=== PATIENT | male | born 1940 | race Caucasian/White ===

== ENCOUNTER 2017-04-25 09:57 | Inpatient (IN) | payer OTHER ==
[2017-04-24 11:35] LABS: BASOPHILS # (AUTO) 0.1 (0.0-0.1); BASOPHILS % 0.7 % (0.0-1.0); EOSINOPHILS # (AUTO) 0.1 (0.0-0.4); HEMATOCRIT 41.3 % (38.2-49.6); HEMOGLOBIN 14.4 g/dL (14.0-18.0); LYMPHOCYTES # (AUTO) 1.8 (1.0-3.2); LYMPHOCYTES % 21.6 % (18.0-39.1); MEAN CORPUSCULAR HEMOGLOBIN 31.2 pg (28-32); MEAN CORPUSCULAR HGB CONC 34.9 g/dL (31-35); MEAN CORPUSCULAR VOLUME 89.6 fL (81-99); MONOCYTES # (AUTO) 0.7 (0.2-0.8); MONOCYTES % 8.2 % (4.4-11.3); NEUTROPHILS # (AUTO) 5.5 (2.1-6.9); NEUTROPHILS % 68.3 % (38.7-80.0); PLATELET COUNT 331 x10e3/uL (140-360); RED BLOOD COUNT 4.61 x10e6/uL (4.3-5.7); RED CELL DISTRIBUTION WIDTH 13.1 % (11.7-14.4)
[2017-04-24 12:04] LABS: BLOOD UREA NITROGEN 21 mg/dL (7-26); BUN/CREATININE RATIO 20 (6-25); CARBON DIOXIDE 28 mmol/L (22-29); CHLORIDE 106 mmol/L (98-107); CREATININE, SERUM 1.07 mg/dL (0.72-1.25); EST GLOMERULAR FILTRATION RATE > 60 ML/MIN (60-); GLUCOSE 105 mg/dL (74-118); SODIUM 143 mmol/L (136-145)
--- NOTE | 2017-04-24 12:09 | Diagnostic Imaging Report ---
PROCEDURE:CHEST 2 VIEWS TECHNIQUE:PA and lateral chest INDICATION:Preop evaluation COMPARISON:None. FINDINGS: Lungs are clear and symmetrically inflated. No pleural effusions. Normal heart heart size and mediastinal contour. 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 Intact skeleton. CONCLUSION: No acute abnormality. Dictated by: Tommy Small M.D. on 04/24/2017 at 12:18 Electronically approved by: Tommy Small M.D. on 04/24/2017 at 12:18
[~2017-04-25] VITALS: Ht 167.6 cm; Wt 84.8 kg
[~2017-04-25 09:57] MED LIST: ALLOPURINOL300 MG PO; AVODART0.5 MG PO; DOXAZOSIN MESYLA4 MG PO; HYDROCHLOROTHIA25 MG PO; PENICILLIN V P500 MG PO; SIMVASTATIN20 MG PO
[2017-04-25] MEDS ORDERED: CEFOXITIN 1GM/ DEXTROSE 50ML 100 ML IV ONE (10:21)
[2017-04-25] MEDS ORDERED: BUPIVACAINE HCL 0.5% INJ 30 ML VIAL INJ ONE (13:24)
[2017-04-25] MEDS ORDERED: ONDANSETRON HCL INJ 2 MG/ML VIAL ONE ×2 (14:23→15:33)
[2017-04-25] MEDS ORDERED: GLYCOPYRROLATE INJ 1MG/ 5 ML SYR ONE (14:23)
[2017-04-25] MEDS ORDERED: NEOSTIGMINE 5 MG/5ML SYR ONE (14:23)
[2017-04-25] MEDS ORDERED: ROCURONIUM BROMIDE 10 MG/ML 5ML VIAL ONE (14:23)
[2017-04-25] MEDS ORDERED: DEXAMETHASONE SOD PHOS INJ 4 MG/ML VIAL ONE (14:23)
[2017-04-25] MEDS ORDERED: SEVOFLURANE INHAL SOLN 250 ML PEN BTL ONE (14:23)
[2017-04-25] MEDS ORDERED: PROPOFOL IV EMULSION 10 MG/ML 20 ML VIAL ONE (14:23)
[2017-04-25] MEDS ORDERED: LIDOCAINE HCL 2% LOCAL INJ 5 ML SDV VIAL INJ ONE (14:23)
[2017-04-25] MEDS: DEXTROSE 5%/LACTATED RINGERS 1,000 ML IV SCH (15:08)
[2017-04-25] MEDS ORDERED: ONDANSETRON HCL INJ 2 MG/ML VIAL IV PRN (15:15)
[2017-04-25] MEDS ORDERED: NALOXONE HCL INJ 0.4 MG/ML AMP IV PRN (15:15)
[2017-04-25] MEDS ORDERED: ACETAMINOPHEN 1000 MG/100 ML IV PRN (15:15)
[2017-04-25] MEDS ORDERED: MORPHINE SULFATE 1 MG/ML 30ML PCA IV PRN (15:15)
[2017-04-25] MEDS ORDERED: DIPHENHYDRAMINE HCL INJ 50 MG/ML VIAL IM PRN (15:15)
[2017-04-25] MEDS ORDERED: FENTANYL CITRATE/PF 100MCG/2 ML INJ ONE ×2 (15:29→15:33)
[2017-04-25] MEDS ORDERED: MIDAZOLAM HCL 2 MG/2 ML VIAL ONE (15:29)
[2017-04-25] MEDS ORDERED: MORPHINE SULFATE 1 MG/ML 30ML PCA ONE (15:34)
--- NOTE | 2017-04-25 16:13 | Operative Report ---
DATE OF PROCEDURE: April 25, 2017 PREOPERATIVE DIAGNOSIS: Cecal mass. POSTOPERATIVE DIAGNOSIS: Cecal mass. PROCEDURE: Laparoscopic-assisted right colon resection. PREVENTIVE MAINTENANCE COORDINATOR: None. ANESTHESIA: General endotracheal. INDICATIONS AND FINDINGS: The patient is a 77-year-old male who was found to have a mass on colonoscopy at the ileocecal valve that could not be removed endoscopically. At surgery, there was an approximately 3.5-cm sessile polyp at the ileocecal valve, which was completely removed. There were no enlarged lymph nodes and no other abnormalities seen on laparoscopy. TECHNIQUE: After adequate general endotracheal anesthesia, with the patient in the supine position, the abdomen was prepped and draped in a sterile fashion with Terrance solution. Skin of the umbilicus was infiltrated with 0.5% Marcaine. Incision was made at the umbilicus. Abdominal wall was elevated, and a Veress needle was introduced. Pneumoperitoneum was then created. A 5-mm trocar and cannula were then passed through this wound. Laparoscopic camera was introduced. Initial laparoscopy revealed some adhesions around the edge of the liver. There was no mass in the liver. There was no free fluid. The bowel that was seen appeared normal. A 5-mm trocar and cannula were placed in lower midline, and a 5-mm trocar and cannula were placed in the epigastrium. Right colon was mobilized by dividing the peritoneal attachments. The colon was mobilized all the way up to the hepatic flexure and the proximal transverse colon. This was done using the LigaSure device. Once the colon was completely mobilized, a transverse incision was made in the right side of the abdomen just above the level of the umbilicus, and the peritoneal cavity was entered. The colon was delivered up into the wound. The terminal ileum proximal to the cecum was divided with a KADE stapler. The right colon just at the hepatic flexure was also divided with a KADE stapler. Mesentery was divided with the LigaSure device, and the specimen was removed. The colon was opened, confirming that the mass was within the removed specimen, which was at the ileocecal valve. Anastomosis was made between the proximal and distal colon with a KADE stapler and TL-60 stapler. Mesenteric defect was closed with 3-0 Vicryl. Pericolonic fat was also sutured over the staple line using 3-0 Vicryl. The colon was then returned to the peritoneal cavity. The wound was inspected for hemostasis, which was seen to be adequate. The peritoneal cavity was irrigated with saline. All fluid aspirated and inspected for hemostasis, which was seen to be adequate. The fascia in the larger wound was then closed with running suture of #1 PDS. Each wound was irrigated with saline. Skin at each wound was closed with mara. Sterile dressing was applied to each wound. Patient tolerated the procedure well. Estimated blood loss was 75 mL. There were no complications. All counts were correct. Patient was taken to the recovery room in satisfactory condition. Job#: [id number] cc:FILEMON SUMNER MD
[2017-04-25 18:25] VITALS: BP 135/72
[2017-04-25 18:27] VITALS: BP 135/72
[2017-04-25 20:22] VITALS: BP 121/65
[2017-04-25] MEDS: SIMVASTATIN 20 MG TAB PO SCH (20:22)
[2017-04-26] VITALS (9 sets, daily range): BP systolic 83–128; BP diastolic 42–61
[2017-04-26] MEDS: DEXTROSE 5%/LACTATED RINGERS 1,000 ML IV SCH ×4 (02:03→21:45)
[2017-04-26 06:22] LABS: BASOPHILS % 0.1 % (0.0-1.0); HEMATOCRIT 32.6 % (38.2-49.6); HEMOGLOBIN 11.2 g/dL (14.0-18.0); LYMPHOCYTES # (AUTO) 1.2 (1.0-3.2); LYMPHOCYTES % 10.6 % (18.0-39.1); MEAN CORPUSCULAR HEMOGLOBIN 30.6 pg (28-32); MEAN CORPUSCULAR HGB CONC 34.4 g/dL (31-35); MEAN CORPUSCULAR VOLUME 89.1 fL (81-99); MONOCYTES # (AUTO) 1.1 (0.2-0.8); MONOCYTES % 9.7 % (4.4-11.3); NEUTROPHILS # (AUTO) 8.6 (2.1-6.9); NEUTROPHILS % 79.1 % (38.7-80.0); PLATELET COUNT 292 x10e3/uL (140-360); RED BLOOD COUNT 3.66 x10e6/uL (4.3-5.7); RED CELL DISTRIBUTION WIDTH 12.8 % (11.7-14.4)
[2017-04-26 06:44] LABS: ANION GAP 10.6 mmol/L (8-16); BLOOD UREA NITROGEN 16 mg/dL (7-26); BUN/CREATININE RATIO 17 (6-25); CALCIUM 8.4 mg/dL (8.4-10.2); CARBON DIOXIDE 26 mmol/L (22-29); CHLORIDE 108 mmol/L (98-107); CREATININE, SERUM 0.92 mg/dL (0.72-1.25); EST GLOMERULAR FILTRATION RATE > 60 ML/MIN (60-); GLUCOSE 147 mg/dL (74-118); POTASSIUM 3.6 mmol/L (3.5-5.1); SODIUM 141 mmol/L (136-145)
[2017-04-26] MEDS ORDERED: SODIUM CHLORIDE 0.9% 1000ML 1,000 ML IV ONE (08:15)
[2017-04-26] MEDS ORDERED: MORPHINE SULFATE 1 MG/ML 30ML PCA IV PRN (08:15)
[2017-04-26] MEDS: ALLOPURINOL 300 MG TAB PO SCH (09:00)
[2017-04-26] MEDS: HYDROCHLOROTHIAZIDE 25 MG TAB PO SCH (09:00)
[2017-04-26] MEDS: SIMVASTATIN 20 MG TAB PO SCH (20:56)
[2017-04-26] MEDS: HYDROCODONE/APAP 7.5MG-325MG 1 EA TAB PO PRN (20:57)
[2017-04-27 02:41] VITALS: BP 98/47
[2017-04-27 05:00] VITALS: BP 103/54
[2017-04-27 06:49] LABS: HEMATOCRIT 30.5 % (38.2-49.6); HEMOGLOBIN 10.5 g/dL (14.0-18.0); MEAN CORPUSCULAR HEMOGLOBIN 31.4 pg (28-32); MEAN CORPUSCULAR HGB CONC 34.4 g/dL (31-35); MEAN CORPUSCULAR VOLUME 91.3 fL (81-99); PLATELET COUNT 243 x10e3/uL (140-360); RED BLOOD COUNT 3.34 x10e6/uL (4.3-5.7); RED CELL DISTRIBUTION WIDTH 13.1 % (11.7-14.4)
[2017-04-27] MEDS: DEXTROSE 5%/LACTATED RINGERS 1,000 ML IV SCH ×2 (07:00→16:40)
[2017-04-27] MEDS: HYDROCODONE/APAP 7.5MG-325MG 1 EA TAB PO PRN (07:00)
[2017-04-27 07:15] LABS: ANION GAP 8.4 mmol/L (8-16); BLOOD UREA NITROGEN 12 mg/dL (7-26); BUN/CREATININE RATIO 15 (6-25); CALCIUM 8.1 mg/dL (8.4-10.2); CARBON DIOXIDE 27 mmol/L (22-29); CHLORIDE 110 mmol/L (98-107); CREATININE, SERUM 0.81 mg/dL (0.72-1.25); EST GLOMERULAR FILTRATION RATE > 60 ML/MIN (60-); GLUCOSE 121 mg/dL (74-118); POTASSIUM 3.4 mmol/L (3.5-5.1); SODIUM 142 mmol/L (136-145)
[2017-04-27 07:45] VITALS: BP 121/67
[2017-04-27] MEDS: ALLOPURINOL 300 MG TAB PO SCH (08:20)
[2017-04-27] MEDS: HYDROCHLOROTHIAZIDE 25 MG TAB PO SCH (08:20)
[2017-04-27 09:10] LABS: BAND NEUTROPHILS % (MANUAL) 2 %; LYMPHOCYTES % (MANUAL) 15 % (19-48); MONOCYTES % (MANUAL) 4 % (3.4-9.0); NEUTROPHILS % (MANUAL) 79 % (40-74)
[2017-04-27 09:11] LABS: PLATELET ESTIMATE ADEQUATE; PLATELET MORPHOLOGY COMMENT NORMAL; RBC MORPHOLOGY COMMENT NORMAL
[2017-04-27 11:51] VITALS: BP 104/62
[2017-04-27 16:10] VITALS: BP 117/66
[2017-04-27 20:00] VITALS: BP 125/61
[2017-04-27] MEDS: SIMVASTATIN 20 MG TAB PO SCH (20:09)
[2017-04-27] MEDS: TAMSULOSIN HCL 0.4 MG CAP PO SCH (20:09)
[2017-04-28] VITALS: BP 118/58
[2017-04-28] MEDS: DEXTROSE 5%/LACTATED RINGERS 1,000 ML IV SCH ×2 (00:25→02:03)
[2017-04-28 04:00] VITALS: BP 113/65
[2017-04-28 08:25] VITALS: BP 132/75
[2017-04-28] MEDS: ALLOPURINOL 300 MG TAB PO SCH (08:30)
[2017-04-28] MEDS: HYDROCHLOROTHIAZIDE 25 MG TAB PO SCH (08:30)
[2017-04-28 12:12] VITALS: BP 133/81
[2017-04-28 16:20] VITALS: BP 120/70
[2017-04-28 20:00] VITALS: BP 138/74
[2017-04-28] MEDS: TAMSULOSIN HCL 0.4 MG CAP PO SCH (20:28)
[2017-04-28] MEDS: SIMVASTATIN 20 MG TAB PO SCH (20:28)
[2017-04-29] VITALS (7 sets, daily range): BP systolic 127–147; BP diastolic 76–87
[2017-04-29] MEDS: HYDROCHLOROTHIAZIDE 25 MG TAB PO SCH (09:38)
[2017-04-29] MEDS: ALLOPURINOL 300 MG TAB PO SCH (09:39)
[2017-04-29] MEDS: DEXTROSE 5%/LACTATED RINGERS 1,000 ML IV SCH (15:02)
[2017-04-29] MEDS: TAMSULOSIN HCL 0.4 MG CAP PO SCH (21:03)
[2017-04-29] MEDS: SIMVASTATIN 20 MG TAB PO SCH (21:03)
[2017-04-30 08:00] VITALS: BP 144/81
[2017-04-30] MEDS: ALLOPURINOL 300 MG TAB PO SCH (08:42)
[2017-04-30] MEDS: HYDROCHLOROTHIAZIDE 25 MG TAB PO SCH (08:42)
[2017-04-30] MEDS: DEXTROSE 5%/LACTATED RINGERS 1,000 ML IV SCH (11:02)
[2017-04-30 12:00] VITALS: BP 122/75
[2017-04-30] MEDS ORDERED: FLOMAX0.4 MG PO (13:47)
[2017-04-30] MEDS ORDERED: NORCO 5-325 TA1 EACH PO (13:47)
--- NOTE | 2017-04-30 16:21 | Discharge Summary ---
ADMISSION DIAGNOSIS: Cecal mass. DISCHARGE DIAGNOSIS: Cecal mass. PRINCIPAL PROCEDURE: Laparoscopic-assisted right colon resection. HISTORY OF PRESENT ILLNESS: Patient is a 77-year-old male, found to have a mass in the cecum that could not be removed endoscopically. HOSPITAL COURSE: Patient was admitted to the hospital, underwent surgery the same day as admission. He had a laparoscopic-assisted right colon resection. Postoperatively, the patient was stable, started on liquid diet. Ontiveros catheter was removed; however, he had difficulty voiding and had to be replaced. Was seen in consultation by Dr. Jackson Dickerson, who left the catheter in place for 2 more days and removed it for voiding trial, which the patient tolerated. Diet was advanced. Bowel function returned to normal. He was discharged home on the 5th postop day. At the time of discharge, wounds were clean. He is tolerating diet. He was afebrile. Discharge medication was [place] for pain. He will follow up with Dr. Peña in 1 week after discharge. Sent home in satisfactory condition on a regular diet. RANDAL PEÑA MD Job#: [id number] PAT
== END 2017-04-30 15:33 | disposition home or self-care (01) | DRG 331 ==
LOC: OR 09:57 → IMCU 16:27 → MED/SURG2 04-29 11:36
PROVIDERS: ADMIT Surgery; ATTEND Surgery
PROC: 0DTF0ZZ Resection of Right Large Intestine, Open Approach (ICD-10-PCS; principal; 2017-04-25 12:30)
DX: D12.0 Benign neoplasm of cecum (principal); D64.9 Anemia, unspecified; N40.1 Benign prostatic hyperplasia with lower urinary tract symptoms; R33.8 Other retention of urine; R39.14 Feeling of incomplete bladder emptying; K80.80 Other cholelithiasis without obstruction
CPT/HCPCS: 36415; 71020; 80048; 85007; 85025; 85027; 88305; 88307; 93005; J1100; J2001; J2250; J2270; J2405; J7030; J7120